=== PATIENT | female | born 1950 | race Caucasian/White ===

== ENCOUNTER 2019-09-04 12:49 | Outpatient (CLI) | payer MEDICARE ==
--- NOTE | 2019-09-04 14:28 | MRI ---
MRI RIGHT KNEE WITHOUT CONTRAST: Date: 09/04/2019 INDICATION: History of medial meniscal tear with right knee pain. COMPARISON: None. FINDINGS: There is moderate size joint effusion with moderate size popliteal cyst. There are prominent marginal osteophytes affecting all major compartments of the right knee. There ar e areas of focal full thickness chondral thinning involving the median patellar ridge and medial ham llar facet. There are multifocal areas of moderate to severe chondrosis involving the femorotibial co mpartments. There is a complex multidirectional tear involving the medial meniscal body, posterior horn and poste rior root, with medial extrusion. There is a complex multidirectional tear involving the anterior hor n, body, and posterior horn of the lateral meniscus. The extensor mechanism is intact. The MCL and LCLC are intact. The ACL and PCL are intact. IMPRESSION: 1. Moderate osteoarthrosis of the right knee. 2. Medial and lateral meniscal tears. 3. Moderate size popliteal cyst. POS: [facility]
== END 2019-09-04 12:50 | disposition home or self-care (01) ==
LOC: TBSIIMAG 12:49
PROVIDERS: ATTEND Orthopaedic Surgery
DX: S83.241A Other tear of medial meniscus, current injury, right knee, initial encounter (principal); M17.11 Unilateral primary osteoarthritis, right knee; S83.281A Other tear of lateral meniscus, current injury, right knee, initial encounter; M71.21 Synovial cyst of popliteal space [Baker], right knee

== ENCOUNTER 2022-10-23 10:41 | Outpatient (CLI) | payer MEDICARE | END 2022-10-23 10:42 | disposition home or self-care (01) | LOC: SCSCT 10:41 | PROVIDERS: ATTEND Nurse Practitioner Family | DX: I47.1 Supraventricular tachycardia (principal) | CPT/HCPCS: 70450 ==